=== PATIENT | male | born 1965 | race Caucasian/White ===

== ENCOUNTER 2016-12-23 14:09 | Emergency (ER) | payer OTHER ==
[2016-12-23 18:03] LABS: HEMOGLOBIN 13.7 gm/dl (14.0-17.5); RED BLOOD COUNT 4.53 M/UL (4.20-5.50); WHITE BLOOD COUNT 13.6 K/UL (4.5-11.0)
[2016-12-23 18:37] LABS: BUN/CREATININE RATIO 27 (0-10)
== END 2016-12-23 20:53 | disposition left against medical advice (07) ==
LOC: ER1 14:09
PROVIDERS: Emergency Medicine
DX: R07.9 Chest pain, unspecified (principal); I51.9 Heart disease, unspecified; Z79.899 Other long term (current) drug therapy; Z95.5 Presence of coronary angioplasty implant and graft
CPT/HCPCS: 36415; 71010; 80053; 82550; 82553; 83874; 84484; 85025; 85610; 85730; 93005; 99285